=== PATIENT | male | born 1980 | race Caucasian/White ===

== ENCOUNTER 2019-10-22 12:13 | Emergency (ER) | payer SELFPAY ==
[~2019-10-22] VITALS: Ht 185.4 cm; Wt 101.0 kg
[2019-10-22 13:02] LABS: HEMATOCRIT 45.2 % (39.0-50.0); HEMOGLOBIN 15.6 g/dl (14.0-18.0); IMMATURE GRANULOCYTES 0.1 % (0.0-5.0); MEAN CELL VOLUME 91.5 fL CALC (80.0-100.0); MEAN CORPUSCULAR HGB 31.6 pG CALC (26.0-32.0); MEAN CORPUSCULAR HGB CONC 34.5 g/L CALC (32.0-36.0); NEUT# 3.55 thou/uL (1.82-7.42); RED BLOOD COUNT 4.94 mill/uL (4.70-6.10); RED CELL DISTRI WIDTH 12.5 % (11.5-15.5)
[2019-10-22 13:16] VITALS: BP 160/78
[2019-10-22 13:19] LABS: URINE BILIRUBIN - DIPSTICK NEGATIVE (NEGATIVE); URINE BLOOD DIPSTICK MODERATE (NEGATIVE); URINE GLUCOSE - DIPSTICK NEGATIVE (NEGATIVE); URINE KETONE NEGATIVE (NEGATIVE); URINE LEUK ESTERASE NEGATIVE (NEGATIVE); URINE NITRITE - DIPSTICK POSITIVE (Negative); URINE PH 5.5 (4.5-8.0); URINE PROTEIN - DIPSTICK TRACE mg/dL (NEG-TRACE)
[2019-10-22 13:20] LABS: URINE BACTERIA FEW hpf; URINE COLOR ORANGE; URINE SQUAMOUS EPITHELIAL CELL FEW EPI/hpf (0-FEW)
[2019-10-22 13:23] LABS: ALBUMIN 4.7 g/dL (3.2-5.0); ALKALINE PHOSPHATASE 87 u/l (38-126); ANION GAP 17 (6-22 (CALC)); BILIRUBIN, TOTAL 0.6 mg/dL (0.0-1.4); BUN 8 mg/dL (9-20); BUN/CREATININE RATIO 16 (12-20 (CALC)); CARBON DIOXIDE 21 mmol/l (22-30); CHLORIDE 107 mmol/l (95-108); CREATININE 0.5 mg/dL (0.7-1.3); GFR > 60 ML/MIN (>=60 (CALC)); GFR FOR AFR.AMER. > 60 ML/MIN (>=60 (CALC)); POTASSIUM 3.9 mmol/l (3.5-5.1); SGOT/AST 228 u/l (17-59); SODIUM 141 mmol/l (137-146); TOTAL PROTEIN 8.4 g/dL (6.3-8.2)
[2019-10-22] MEDS ORDERED: CIPROFLOXACN500 MG PO (14:31)
[2019-10-22] MEDS ORDERED: TRAMADOL HYDROC50 MG PO (14:32)
== END 2019-10-22 15:00 | disposition home or self-care (01) | DRG 694 ==
LOC: ED 12:13
DX: N20.0 Calculus of kidney (principal); N39.0 Urinary tract infection, site not specified

== ENCOUNTER 2023-02-12 18:48 | Emergency (ER) | payer SELFPAY ==
[~2023-02-12] VITALS: Ht 185.4 cm; Wt 104.8 kg
[~2023-02-12 18:48] MED LIST: CIPROFLOXACN500 MG PO; TRAMADOL HYDROC50 MG PO
[2023-02-12 19:45] VITALS: BP 162/91
[2023-02-12 20:00] VITALS: BP 146/93
[2023-02-12 20:15] VITALS: BP 144/98
[2023-02-12] MEDS ORDERED: TYLENOL # 31 TA1 PO (20:28)
[2023-02-12] MEDS ORDERED: VOLTAREN75 MG PO (20:28)
[2023-02-12 20:30] VITALS: BP 150/97
[2023-02-12 20:39] VITALS: BP 150/97
== END 2023-02-12 20:45 | disposition home or self-care (01) | DRG 563 ==
LOC: ED 18:48
PROC: 2W3MXYZ Immobilization of Left Lower Extremity using Other Device (ICD-10-PCS; principal; 2023-02-12)
DX: S82.892A Other fracture of left lower leg, initial encounter for closed fracture (principal); F17.210 Nicotine dependence, cigarettes, uncomplicated; V86.56XA Driver of dirt bike or motor/cross bike injured in nontraffic accident, initial encounter

== ENCOUNTER 2023-03-06 10:54 | Day surgery (SDC) | payer SELFPAY ==
[~2023-03-06] VITALS: Ht 185.4 cm; Wt 104.3 kg
[~2023-03-06 10:54] MED LIST changes: +TYLENOL # 31 TA1 PO; +VOLTAREN75 MG PO
[2023-03-06] MEDS ORDERED: CEPHALEXIN500 MG PO (12:11)
[2023-03-06] MEDS ORDERED: PERCOCET 10/31 COMBO PO (12:11)
[2023-03-06 14:33] VITALS: BP 154/96
== END 2023-03-06 14:48 | disposition home or self-care (01) | DRG 494 ==
LOC: ORM 10:54
PROVIDERS: ATTEND Podiatrist Foot & Ankle Surgery
PROC: 0QSH04Z Reposition Left Tibia with Internal Fixation Device, Open Approach (ICD-10-PCS; principal; 2023-03-06)
DX: S82.52XA Displaced fracture of medial malleolus of left tibia, initial encounter for closed fracture (principal); F17.200 Nicotine dependence, unspecified, uncomplicated; V86.56XA Driver of dirt bike or motor/cross bike injured in nontraffic accident, initial encounter
CPT/HCPCS: J0131; J0690